=== PATIENT | male | born 1980 | race Two or more races ===

== ENCOUNTER 2017-09-27 22:14 | Emergency (ER) | payer SELFPAY ==
[~2017-09-27] VITALS: Ht 185.4 cm; Wt 83.9 kg
[2017-09-27 22:15] VITALS: BP 130/78
[2017-09-27] MEDS ORDERED: AZITHROMYCIN 500 MG TABLET PO ONE (23:00)
[2017-09-27] MEDS ORDERED: CEFTRIAXONE 250 MG IM ONE (23:00)
[2017-09-27] MEDS ORDERED: AZITHROMYCIN 500 MG TABLET ONE (23:02)
[2017-09-27] MEDS ORDERED: CEFTRIAXONE 250 MG ONE (23:03)
[2017-09-27 23:16] LABS: MICROSCOPIC INDICATED
[2017-09-27 23:30] LABS: CULTURE INDICATED? YES
== END 2017-09-28 | disposition home or self-care (01) ==
LOC: ED 23:29
DX: N34.1 Nonspecific urethritis (principal); F17.210 Nicotine dependence, cigarettes, uncomplicated
CPT/HCPCS: 81001; 87086; 87491; 87591; 96372; 99284; J0696

== ENCOUNTER 2018-10-24 14:26 | Emergency (ER) | payer BC, MEDICAID ==
[~2018-10-24] VITALS: Ht 188 cm; Wt 81.1 kg
[2018-10-24 14:27] VITALS: BP 103/68
--- NOTE | 2018-10-24 14:36 | NUR ---
PT WITH ENCOUNTER WITH FEMALE WHO WENT TO SKILLED NURSING AND WAS FOUND TO HAVE SYPHILIS. PT WAS EXPOSED APPROX, ONE MONTH AGO. PT DENIES DYSURIA, NO DRAINAGE FROM PENIS.
[2018-10-24] MEDS ORDERED: CEFTRIAXONE 250 MG ONE (14:54)
[2018-10-24] MEDS ORDERED: AZITHROMYCIN 500 MG TABLET ONE (14:54)
[2018-10-24] MEDS ORDERED: LIDOCAINE-MPF 1%, 2ML ONE (14:55)
[2018-10-24] MEDS ORDERED: CEFTRIAXONE 250 MG IM ONE (15:00)
[2018-10-24] MEDS ORDERED: BICILLIN-LA 2,400,000 UNITS/4 ML IM ONE (15:00)
[2018-10-24] MEDS ORDERED: AZITHROMYCIN 500 MG TABLET PO ONE (15:00)
--- NOTE | 2018-10-24 15:41 | NUR ---
Patient/Caregiver given discharge instructions and they have confirmed that they understand the instructions. Patient ambulatory with steady gait.
== END 2018-10-24 15:51 | disposition home or self-care (01) ==
LOC: ED 15:49
DX: A74.9 Chlamydial infection, unspecified (principal); A53.9 Syphilis, unspecified
CPT/HCPCS: 36415; 86592; 87491; 87591; 96372; 99283; J0561; J0696; 86780